=== PATIENT | male | born 1970 | race Caucasian/White ===

== ENCOUNTER 2020-10-24 12:04 | Emergency (ER) | payer SELFPAY ==
--- NOTE | 2020-10-24 12:23 | Emergency Department Report ---
ED CPR HPI - General Chief Complaint: Cardiac Arrest/CPR Stated Complaint: CARDIAC ARREST Time Seen by Provider: 10/24/20 12:19 Source: EMS (Verbal report received from emergency medical services. EMS documentation not available at time of chart dictation ), RN notes reviewed, old records reviewed Mode of arrival: Stretcher Limitations: Altered Mental Status, Physical Limitation - History of Present Illness Initial Comments: The patient was evaluated in the emergency department for symptoms described in the history of present illness. He/she was evaluated in the context of the global COVID-19 pandemic, which necessitated consideration that the patient might be at risk for infection with the virus that causes COVID-19. Institutional protocols and algorithms that pertain to the evaluation of patients at risk for COVID-19 are in a state of rapid change based on information released by regulatory bodies including the CDC and federal and state organizations. These policies and algorithms were followed during the patient's care in the emergency department. Please note that these policies, procedures and recommendations changed on a rapid basis. The patient is a 50-year-old gentleman who was brought to the hospital by EMS as an [id number]-[id number] nontraumatic cardiac arrest. Patient arrives receiving qrw-pgibp-etyi ventilation, and active CPR via EMS, with an initial presenting GCS of 3. EMS states the patient was in a car, began to complain of chest pain, vomited, and became unresponsive. EMS reports that bystanders did not start CPR. EMS reports that upon their arrival, the patient is not breathing, has a GCS of 3, and is in asystole. EMS placed oral airway, begins xcb-xgmvj-yowf ventilation, high-quality CPR, and standard ACLS medications. An Accu-Chek is not obtained. The patient is transported to the emergency room. Patient is under EMS care for approximately 15 minutes. During that time, the patient does not have a shockable rhythm, and is pulseless. Upon arrival to this emergency room, the patient has a GCS of 3, is receiving active CPR, pupils are dilated and do not react to light. His initial presenting rhythm is asystole. The patient is intubated by myself. He continues to receive high-quality CPR. Standard ACLS medications, including epinephrine, calcium chloride, sodium bicarbonate, and dextrose 50% are administered emergently. A bedside transthoracic eiukj-ku-naev cardiac ultrasound shows no cardiac activity whatsoever. In spite of aggressive and vigorous resuscitative efforts, we are not able to obtain pulses. The patient remains in asystole. Resuscitative efforts are thus terminated. Complaint: stopped breathing -: minute(s) Place: other Bystander CPR Performed: No Initial Findings in the Field: unresponsive, no pulse (Patient is in asystole) ROSC in the Field: No Associated Injuries: No Associated Symptoms: chest pain, other (Nausea and vomiting) Treatments Prior to Arrival: other airway device, chest compressions, epinephrine mgs # ED Review of Systems ROS: Stated complaint: CARDIAC ARREST Other details as noted in HPI Comment: Unobtainable due to pts medical conditions ED Physical Exam - General Limitations: Other General appearance: other (Nonverbal, GCS of 3) - Head Head exam: Present: atraumatic, normocephalic - Eye Eye exam: Present: normal appearance, other (Conjunctival hemorrhages noted. Pupils midpoint and do not react to light) - ENT ENT exam: Present: normal exam, normal orophraynx, mucous membranes moist - Neck Neck exam: Present: normal inspection - Respiratory Respiratory exam: Present: other (The patient is not breathing spontaneously) - Cardiovascular Cardiovascular Exam: Present: other (The patient is pulseless). Absent: regular rate, normal rhythm - GI/Abdominal GI/Abdominal exam: Present: soft - Rectal Rectal exam: Present: deferred - Extremities Exam Extremities exam: Present: normal inspection - Back Exam Back exam: Present: normal inspection - Neurological Exam Neurological exam: Present: altered - Psychiatric Psychiatric exam: Present: other (The patient is nonverbal) - Skin Skin exam: Present: warm, dry, intact, normal color - Intubation Time Out Performed: No (Emergency situation. Induction agent paralytic not needed) Sedative: none Laryngoscope: none Assist Device Used: fiberoptic device ET Tube Size: 7.5 Tube Secured Depth (cm): 23 Tube Secured Location: lips Tube Placement Confirmation: visualized tube passing t, no breath sounds over epi, confirmation by capnometr Patient Tolerated Procedure: well Intubation Complications: none ED Medical Decision Making - Medical Decision Making Differential diagnosis, including without limited to: Acute coronary syndrome, tension pneumothorax, saddle pulmonary embolism Critical care attestation.: If time is entered above; I have spent that time in minutes in the direct care of this critically ill patient, excluding procedure time. ED Disposition Clinical Impression: Cardiac arrest Disposition: 20 Is pt being admited?: No Does the pt Need Aspirin: No Condition: Undetermined Referrals: PRIMARY CARE, [Primary Care Provider] - 3-5 Days
[2020-10-24] MEDS ORDERED: DEXTROSE 50% IN WATER (25GM) 50 ML SYRINGE IV ONE (22:30)
[2020-10-24] MEDS ORDERED: SODIUM BICARB 8.4% 50 MEQ/50 ML SYRINGE IV ONE (22:30)
[2020-10-24] MEDS ORDERED: EPINEPHrine 1 MG/10 ML SYRINGE ONE (22:30)
[2020-10-24] MEDS ORDERED: CALCIUM CHLORIDE 1,000 MG/10 ML SYRINGE IV ONE (22:30)
== END 2020-10-24 17:07 ==
LOC: ED 12:04
DX: I46.9 Cardiac arrest, cause unspecified (principal)
CPT/HCPCS: 31500; 92950; 99285; J0171